=== PATIENT | male | born 1950 | race Two or more races ===

== ENCOUNTER 2024-07-13 08:27 | Emergency (ER) | payer OTHER ==
[~2024-07-13] VITALS: Ht 175.3 cm; Wt 99.5 kg
--- NOTE | 2024-07-13 09:23 | DVH ---
INDICATION: R/o fracture TECHNIQUE: 4 views of the lumbar spine were obtained. COMPARISON: None FINDINGS: There are no acute fractures or subluxations. Suggestion of degenerative neural foraminal stenosis at L3-L4, L4-L5 and L5-S1. IMPRESSION: No acute fracture or subluxation.
--- NOTE | 2024-07-13 09:23 | DVH ---
INDICATION: R/o fracture TECHNIQUE: 3 views of the cervical spine were obtained. COMPARISON: None FINDINGS: The cervical spine is visualized from C1-C7. There is loss of the normal cervical lordosis which can be positional. No fractures or subluxations are identified. Alignment appears unremarkable. Prevertebral soft tissues are within normal limits. IMPRESSION: 1. No evidence for fracture or subluxation.
--- NOTE | 2024-07-13 09:24 | DVH ---
INDICATION: Pain TECHNIQUE: 4 views of the thoracic spine were obtained. COMPARISON: None FINDINGS: There is no evidence of fracture, subluxation and/or dislocation. Degenerative changes of the spine. The alignment is anatomical. The paravertebral soft tissues were unremarkable. IMPRESSION: 1. Of the visualized spine, there is no evidence for fracture or subluxation.
--- NOTE | 2024-07-13 10:39 | ED.PDOC ---
Dominick. trauma (HPI) HPI Comments 74-year-old male with no pertinent past medical history, presents to ED for right shoulder blade pain and back pain x2 hours, status post mechanical trip and fall. Patient reports that he was walking down the stairs and then tripped and fell. He denies any head injury, LOC, nausea, vomiting. He currently rates his pain as 5/10 in severity. Patient denies any numbness or tingling or incontinence. No alleviating or aggravating factors. Chief Complaint: Fall Injury Time Seen by MD: 08:38 Primary Care Provider: NAOMI Reviewed notes: Nurses Notes, Medications, Allergies Allergies: Coded Allergies: Penicillins (Verified Allergy, Unknown, 07/13/24) Mode of Arrival: Ambulatory Past Medical History PAST MEDICAL HISTORY: Denies Surgical History: Denies all surgeries Family History Family History: Reviewed,noncontributory to illness, No family hx of Cancer, No family hx of DM, No family hx of Heart martha, No family hx of HTN, No family hx ofKidney martha, No family hx of Liver martha, No family hx of Lung martha, No family hx of Stroke Social History Smoker: Non-Smoker Alcohol: Denies ETOH Use Drugs: Denies Drug Use Constitutional: denies: chills, diaphoresis, fatigue, fever, malaise, sweats, weakness, others EENTM: denies: blurred vision, double vision, ear bleeding, ear discharge, ear drainage, ear pain, ear ringing, eye pain, eye redness, hearing loss, mouth pa in, mouth swelling, nasal discharge, nose bleeding, nose congestion, nose pain, photophobia, tearing, throat pain, throat swelling, voice changes, others Respiratory: denies: cough, hemoptysis, orthopnea, SOB at rest, shortness of breath, SOB with excertion, stridor, wheezing, others Cardiovascular: denies: chest pain, dizzy spells, diaphoresis, Dyspnea on exertion, edema, irregular heart beat, left arm pain, lightheadedness, palpitations, PND, syncope, others Gastrointestinal: denies: abdomen distended, abdominal pain, blood streaked bowels, constipated, diarrhea, dysphagia, difficulty swallowing, hematemesis, melena, nausea, poor appetite, poor fluid intake, rectal bleeding, rectal pain, vomiting, others Genitourinary: denies: burning, dysuria, flank pain, frequency, hematuria, incontinence, penile discharge, penile sore, pain, testicle pain, testicle swelling, urgency, others Neurological: denies: dizziness, fainting, headache, left sided numbness, left sided weakness, numbness, paresthesia, pre-existing deficit, right sided numbness, right sided weakness, seizure, speech problems, tingling, tremors, weakness, others Musculoskeletal: reports: back pain, joint pain; denies: gout, joint swelling, muscle pain, muscle stiffness, neck pain, others Integumetry: denies: bruises, change in color, change in hair/nails, dryness, laceration, lesions, lumps, rash, wounds, others Allergic/Immunocompromised: denies: Difficulty Healing, Frequent Infections, Hives, Itching, others Hematologic/Lymphatic: denies: anemia, blood clots, easy bleeding, easy bruising, swollen glands, others Endocrine: denies: excessive hunger, excessive sweating, excessive thirst, excessive urination, flushing, intolerance to cold, intolerance to heat, unexplained weight gain, unexplained weight loss, others Psychiatric: denies: anxiety, bipolar disorder, depression, hopeless, panic disorder, schizophrenia, sleepless, suicidal, others All Other Systems: Reviewed and Negative Physical Exam General Appearance: No Apparent Distress, Normal HEENT: Normal ENT Inspection, Pharynx Normal, TMs Normal Neck: Full Range of Motion, Non-Tender, Normal, Normal Inspection Respiratory: Chest Non-Tender, Lungs Clear, No Accessory Muscle Use, No Respiratory Distress, Normal Breath Sounds Cardiovascular: No Edema, No JVD, No Murmur, No Gallop, Normal Peripheral Pulses, Regular Rate/Rhythm Breast Exam: Deferred Gastrointestinal: No Organomegaly, Non Tender, No Pulsatile Mass, Normal Bowel Sounds, Soft Genitalia: Deferred Pelvic: Deferred Rectal: Deferred Extremities: No calf tenderness, Normal capillary refill, Normal inspection, Normal range of motion, Non-tender, No pedal edema Musculoskeletal : Location: Right Extremity Location: Back (No tenderness to palpation along the entire spine. No midline tenderness. No spinal step-offs.), Shoulder (No tenderness to palpation to the right shoulder. 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 Was a procedure done?: No Differential Diagnosis Multiple Trauma: Fractures, Spine Injury, Abrasions, Contusion X-Ray, Labs, Meds, VS Vital Signs Date Time Temp Pulse Resp B/P (MAP) Pulse Ox O2 Delivery O2 Flow Rate FiO2 07/13/24 08:30 99.5 90 18 170/86 (114) 96 X-Ray, Labs, Meds, VS Comment C Spine XR IMPRESSION: 1. No evidence for fracture or subluxation. T Spine XR IMPRESSION: 1. Of the visualized spine, there is no evidence for fracture or subluxation. L Spine XR IMPRESSION: No acute fracture or subluxation. MDM: Patient with history as above presented with back pain and scapular pain. History obtained from patient. Patient was nontoxic, stable, afebrile, ambulatory, no acute distress. Exam as above. Independently reviewed imaging. X-rays of the C-spine, T-spine, L-spine were all unremarkable. Reviewed external records. All findings were discussed with the patient. Differential diagnosis considered. Overall presentation is consistent with musculoskeletal pain status post fall. Low suspicion for fracture, dislocation, cauda equina syndrome. Patient was treated with Tylenol with improvement in symptoms. Patient was reevaluated and vital signs were reviewed. Consideration was given for admission, but the patient was stable for outpatient management. Disposition: Discussed the need to follow up diagnostics, including incidental findings. Discharged the patient with instructions to obtain outpatient follow up in 1-2 days of today's symptoms and findings, with strict return precautions if patient develops new or worsening symptoms. This medical document was created using the [employer] system. Although this document has been carefully reviewed, there may still be some phonetic and typographical errors, which are due to imperfections of the software program, and do not reflect any compromise in the patient's medical care. Time of 1ST Reevaluation: 10:38 Reevaluation 1ST: Improved Patient Education/Counseling: Diagnosis, Treatment, Prognosis, Need For Follow Up Family Education/Counseling: No Family Present Departure 1 Departure Time of Disposition: 10:38 Impression: Primary Impression: Back pain Qualified Codes: M54.50 - Low back pain, unspecified Additional Impression: Pain of right scapula Disposition: HOME / SELF CARE / HOMELESS Condition: Fair Critical Care Note Critical Care Time?: No Stability Stability form required: No Heart Score Heart Score: Heart Score Response (Comments) Value History N/A 0 EKG N/A 0 Age N/A 0 Risk Factors N/A 0 Troponin N/A 0 Total 0 JAKE VERDUZCO PAC Jul 13, 2024 10:39
[2024-07-13] MEDS: ACETAMINOPHEN 325 MG TAB PO ONE (10:40)
[2024-07-13 10:52] VITALS: BP 165/79; PULSE 85; TEMP 97.9
[2024-07-13 10:53] VITALS: RESP 17; O2SAT 97
== END 2024-07-13 10:54 | disposition home or self-care (01) ==
LOC: ER 08:27
DX: M54.50 Low back pain, unspecified (principal); M54.6 Pain in thoracic spine; M25.511 Pain in right shoulder; Z88.0 Allergy status to penicillin; W10.8XXA Fall (on) (from) other stairs and steps, initial encounter; Y93.01 Activity, walking, marching and hiking; Y92.69 Other specified industrial and construction area as the place of occurrence of the external cause; Y99.8 Other external cause status
CPT/HCPCS: 72040; 72070; 72100